=== PATIENT | male | born 1965 | race Hispanic/Latino ===

== ENCOUNTER → 2025-04-16 | Outpatient (CLI) | payer OTHER ==
--- NOTE | 2025-04-17 09:51 | HMCIMG ---
EXAM: CT Cardiac calcium scoring. CLINICAL HISTORY: Screening. TECHNIQUE: Thin collimated axial CT cardiac images were obtained. A CT scan is done according to ALARA (As Low As Reasonably Achievable). CONTRAST: None. COMPARISON: None provided. FINDINGS: Calcium Score: VESSEL Number of lesions Volume mm3 Equi. Mass/mg Calcium score LM 0 0 - 0 LAD 3 58.7 - 80.4 LCX 4 56.7 - 65.9 RCA 1 23.9 - 28.7 Total 8 139.2 - 175.0 IMPRESSION: The total calcium score is 175.0. 74th percentile. /[place]
== END | disposition home or self-care (01) ==
LOC: RAH 14:40
PROVIDERS: ATTEND Internal Medicine Cardiovascular Disease
DX: Z13.6 Encounter for screening for cardiovascular disorders (principal)
CPT/HCPCS: 75571